=== PATIENT | female | born 1960 | race Caucasian/White ===

== ENCOUNTER 2016-03-25 11:13 | Outpatient (CLI) | payer OTHER ==
--- NOTE | 2016-03-25 12:18 | DIAGNOSTIC IMAGING REPORT ---
PROCEDURE: XR KNEE 1 OR 2 VIEWS - RIGHT INDICATION: Knee pain TECHNIQUE: Two-views COMPARISON: None FINDINGS: There is severe osteoarthritis with obliteration of both the medial and lateral joint space compartment. There is also patellofemoral joint space narrowing. IMPRESSION: 1. Severe osteoarthritis with joint space obliteration.
== END 2016-03-25 23:00 ==
LOC: XR SRH 11:13
DX: M17.11 Unilateral primary osteoarthritis, right knee (principal)